=== PATIENT | female | born 1985 | race Two or more races ===

== ENCOUNTER 2016-07-12 04:39 | Emergency (ER) | payer MEDICAID ==
[~2016-07-12] VITALS: Ht 160 cm; Wt 80.1 kg
[2016-07-12] MEDS ORDERED: SODIUM CHLORIDE FLUSH 10ML SYR IVF ONE (05:30)
[2016-07-12] MEDS ORDERED: MORPHINE SULFATE 4 MG/ML, 1ML IVPush PRN (05:30)
[2016-07-12] MEDS ORDERED: SODIUM CHLORIDE 0.9% 1,000ML IVBOLUS ONE (05:30)
[2016-07-12] MEDS ORDERED: ONDANSETRON 2MG/ML, 2ML IVPush ONE (05:30)
[2016-07-12] MEDS ORDERED: FAMOTIDINE 20 MG/2 ML IVP ONE (05:30)
[2016-07-12] MEDS ORDERED: MORPHINE SULFATE 4 MG/ML, 1ML ONE (05:38)
[2016-07-12] MEDS ORDERED: FAMOTIDINE 20 MG/2 ML ONE (05:38)
[2016-07-12] MEDS ORDERED: ONDANSETRON 2MG/ML, 2ML ONE (05:38)
[2016-07-12 06:04] LABS: ASPARTATE AMINO TRANSFERASE 13 U/L (15-37); BLOOD UREA NITROGEN 13 mg/dL (7-18)
[2016-07-12 07:50] VITALS: BP 117/67
== END 2016-07-12 08:06 | disposition home or self-care (01) ==
LOC: ED 06:00
DX: R10.84 Generalized abdominal pain (principal); R11.2 Nausea with vomiting, unspecified
CPT/HCPCS: 36415; 76700; 80053; 81001; 83690; 84703; 85025; 87086; 96361; 96374; 96375; 99285; J2405; J7030; S0028

== ENCOUNTER 2017-08-09 12:06 | Emergency (ER) | payer MEDICAID ==
[~2017-08-09] VITALS: Ht 160 cm; Wt 79.3 kg
[2017-08-09 12:15] VITALS: BP 113/73
[2017-08-09 12:39] LABS: BASOPHILS # (AUTO) 0.03 x10^3/uL (0-0.1); BASOPHILS % (AUTO) 0 % (0-1); EOSINOPHILS # (AUTO) 0.07 x10^3/uL (0-0.4); EOSINOPHILS % (AUTO) 1 % (1-7); LYMPHOCYTES # (AUTO) 2.09 x10^3/uL (1-3.4); LYMPHOCYTES % (AUTO) 21 % (22-44); MD NO; MEAN CORPUSCULAR HEMOGLOBIN 30.8 pg (27.0-34.8); MEAN CORPUSCULAR HGB CONC 33.9 g/dL (32.4-35.8); MEAN PLATELET VOLUME 7.9 fL (7.4-10.4); MONOCYTES # (AUTO) 0.47 x10^3/uL (0.2-0.8); MONOCYTES % (AUTO) 5 % (2-9); NEUTROPHILS % (AUTO) 73 % (42-75); PLATELET COUNT 325 x10^3/uL (130-400); RED BLOOD COUNT 4.89 x10^6/uL (3.82-5.3); RED CELL DISTRIBUTION WIDTH 13.3 % (9.6-15.2)
[2017-08-09 12:51] LABS: ALBUMIN 3.4 g/dL (3.4-5.0); ANION GAP 5 mmol/L (5-15); CALCIUM 9.1 mg/dL (8.5-10.1); CHLORIDE 108 mmol/L (98-107); CREATININE 0.81 mg/dL (0.55-1.02)
[2017-08-09 14:25] LABS: MICROSCOPIC NOT IND
[2017-08-09 14:35] LABS: CULTURE INDICATED? NO
[2017-08-09] MEDS ORDERED: OMNIPAQUE 350 MG/ML, 100ML BOTTLE ONE (15:04)
== END 2017-08-09 16:17 | disposition home or self-care (01) ==
LOC: ED 16:00
DX: R10.32 Left lower quadrant pain (principal)
CPT/HCPCS: 36415; 74177; 76830; 80048; 81003; 82040; 84703; 85025; 99285; Q9967

== ENCOUNTER 2018-05-16 09:24 | Emergency (ER) | payer MEDICAID ==
[~2018-05-16] VITALS: Ht 160 cm; Wt 79.3 kg
[2018-05-16 09:28] VITALS: BP 109/62
[2018-05-16] MEDS ORDERED: KETOROLAC 30 MG/1 ML IM ONE (10:00)
[2018-05-16 10:12] LABS: BASOPHILS # (AUTO) 0.04 x10^3/uL (0-0.1); BASOPHILS % (AUTO) 1 % (0-1); EOSINOPHILS # (AUTO) 0.07 x10^3/uL (0-0.4); EOSINOPHILS % (AUTO) 1 % (1-7); LYMPHOCYTES % (AUTO) 28 % (22-44); MD NO; MEAN CORPUSCULAR HEMOGLOBIN 32.6 pg (27.0-34.8); MEAN CORPUSCULAR HGB CONC 34.6 g/dL (32.4-35.8); MEAN CORPUSCULAR VOLUME 94.3 fL (80-100); MEAN PLATELET VOLUME 8.1 fL (7.4-10.4); MONOCYTES # (AUTO) 0.33 x10^3/uL (0.2-0.8); MONOCYTES % (AUTO) 5 % (2-9); NEUTROPHILS # (AUTO) 4.97 x10^3/uL (1.8-6.8); NEUTROPHILS % (AUTO) 66 % (42-75); PLATELET COUNT 288 x10^3/uL (130-400); RED BLOOD COUNT 4.76 x10^6/uL (3.82-5.3); RED CELL DISTRIBUTION WIDTH 12.8 % (9.6-15.2)
[2018-05-16] MEDS ORDERED: KETOROLAC 30 MG/1 ML ONE (10:19)
[2018-05-16 10:23] LABS: ALANINE AMINOTRANSFERASE 36 U/L (12-78); ALBUMIN 3.6 g/dL (3.4-5.0); ANION GAP 7 mmol/L (5-15); CHLORIDE 113 mmol/L (98-107); CREATININE 0.66 mg/dL (0.55-1.02)
[2018-05-16 10:27] LABS: ALKALINE PHOSPHATASE 65 U/L (45-117); BILIRUBIN,TOTAL 0.3 mg/dL (0.2-1.0); TOTAL PROTEIN 6.8 g/dL (6.4-8.2)
[2018-05-16 10:42] LABS: MICROSCOPIC NOT IND
[2018-05-16 10:50] LABS: CULTURE INDICATED? NO
== END 2018-05-16 11:32 | disposition home or self-care (01) ==
LOC: ED 11:21
DX: N83.292 Other ovarian cyst, left side (principal); R10.2 Pelvic and perineal pain
CPT/HCPCS: 36415; 76830; 80053; 81003; 84703; 85025; 96372; 99284; J1885

== ENCOUNTER 2019-02-05 17:56 | Emergency (ER) | payer MEDICAID ==
[~2019-02-05] VITALS: Ht 160 cm; Wt 80.2 kg
--- NOTE | 2019-02-05 19:11 | NUR ---
PT TO ED FROM HOME ACCOMP BY . PRAVIN GELLER AT BEDSIDE FOR EVAL. PT C/O PAIN LLQ RADIATES TO RECTUM AND LUQ ABD. PAINFUL ON PALP. NO BLOOD IN STOOL. ON PERIOD. ALSO C/O FREQUENCY, DYSURIA, L FLANK PAIN. UA SENT. LABS BEING DRAWN. 08/31 PAIN. VSS. CALL [facility]ERA IN REACH. NAD.
[2019-02-05 19:25] LABS: HCG UR SG 1.022 (1.003-1.030); MICROSCOPIC AUTO
[2019-02-05 19:26] LABS: CULTURE INDICATED? NO
[2019-02-05] MEDS ORDERED: KETOROLAC 30 MG/1 ML IM ONE (19:30)
[2019-02-05 19:43] LABS: ANION GAP 7 mmol/L (5-15); CALCIUM 8.5 mg/dL (8.5-10.1); CHLORIDE 111 mmol/L (98-107); CREATININE 0.78 mg/dL (0.55-1.02)
[2019-02-05] MEDS ORDERED: KETOROLAC 30 MG/1 ML ONE (19:43)
--- NOTE | 2019-02-05 19:45 | NUR ---
PT BACK FROM US. TORADOL PER APR. VSS. CALL BARRERA IN REACH. RESULTS PENDING.
[2019-02-05 19:50] LABS: BASOPHILS # (AUTO) 0.03 x10^3/uL (0-0.1); BASOPHILS % (AUTO) 0 % (0-1); EOSINOPHILS # (AUTO) 0.17 x10^3/uL (0-0.4); EOSINOPHILS % (AUTO) 2 % (1-7); LYMPHOCYTES # (AUTO) 2.17 x10^3/uL (1-3.4); LYMPHOCYTES % (AUTO) 25 % (22-44); MD NO; MEAN CORPUSCULAR HEMOGLOBIN 32.3 pg (27.0-34.8); MEAN CORPUSCULAR HGB CONC 33.6 g/dL (32.4-35.8); MEAN CORPUSCULAR VOLUME 96.2 fL (80-100); MEAN PLATELET VOLUME 8.4 fL (7.4-10.4); MONOCYTES # (AUTO) 0.62 x10^3/uL (0.2-0.8); MONOCYTES % (AUTO) 7 % (2-9); NEUTROPHILS # (AUTO) 5.86 x10^3/uL (1.8-6.8); NEUTROPHILS % (AUTO) 66 % (42-75); PLATELET COUNT 309 x10^3/uL (130-400); RED BLOOD COUNT 4.55 x10^6/uL (3.82-5.3)
[2019-02-05 20:14] VITALS: BP 116/72
== END 2019-02-05 20:16 | disposition home or self-care (01) ==
LOC: ED 20:10
DX: N83.292 Other ovarian cyst, left side (principal); R10.2 Pelvic and perineal pain; R30.0 Dysuria
CPT/HCPCS: 36415; 76830; 80048; 81001; 81025; 85025; 96372; 99284; J1885